=== PATIENT | female | born 1970 | race Caucasian/White ===

== ENCOUNTER → 2018-05-25 | Outpatient (CLI) | payer OTHER | LOC: COL.RAD 14:29 | DX: D17.79 Benign lipomatous neoplasm of other sites (principal) ==

== ENCOUNTER 2018-07-11 22:31 | Inpatient (IN) | payer OTHER ==
[~2018-07-11] VITALS: Ht 170.2 cm; Wt 101.9 kg
--- NOTE | 2018-07-11 23:45 | NUR ---
Patient brought to floor by [facility], brought from [facility]. Vitals stable. Patient reports pain to ABD, rating it 10/10. Currently having dry heaves. Patient's skin and eyes notably yellow from jaundice. Per report patient has a history of Hep C. 20 g INT to right wrist. Will notify provider of patient's arrival.
[2018-07-12] VITALS (747 sets, daily range): BP systolic 67–107; BP diastolic 42–69; PULSE 76–102; TEMP 98.2–99.9; O2SAT 43–100
--- NOTE | 2018-07-12 01:30 | NUR ---
Patient given Zofran for dry heaves. Will reasses n/v in order to give lactulose.
--- NOTE | 2018-07-12 03:15 | NUR ---
Patient able to take lactulose without nausea, but reports a burning sensation in chest.
[2018-07-12 03:56] LABS: MEAN CELL VOLUME 107 fl (80.0-100.0); MEAN CORPUSCULAR HGB CONC 32 g/dl (33.0-37.0); MEAN PLATELET VOLUME 10.7 fl (7.4-10.4); PLATELET COUNT 57 K/mm3 (130-400); RED BLOOD COUNT 2.16 M/mm3 (4.10-5.30); REDCELL DISTRIBUTION WIDTH-CV 25.3 % (11.5-14.5)
[2018-07-12 03:59] LABS: INR 3.6 (0.8-3.0); PROTHROMBIN TIME 43.8 SECONDS (9.7-12.8)
--- NOTE | 2018-07-12 04:00 | NUR ---
Patient up to BSC with liquid stool. Complete bed change completed.
[2018-07-12 04:01] LABS: HEMOGLOBIN 7.4 g/dl (12.5-16.0); MEAN CORPUSCULAR HEMOGLOBIN 34 pg (27.0-31.0)
--- NOTE | 2018-07-12 04:15 | NUR ---
Patient had 75 ml emesis after drinking 1/4 of dose of Effer-K in apple juice. 12.5 mg of Phenergan given at this time, immediate relief noted.
[2018-07-12 04:16] LABS: ALBUMIN 2.7 gm/dL (3.5-5.0); BILIRUBIN,TOTAL 24.9 mg/dL (0.0-1.0); CALCIUM 8.1 mg/dL (8.4-10.2); POTASSIUM 3.2 mmol/L (3.4-5.0); TOTAL PROTEIN 7.3 gm/dL (6.4-8.2)
[2018-07-12 04:28] LABS: ANISOCYTOSIS 3+; BAND 10 % (0-10); HYPOCHROMIA 1+; LYMPHOCYTE 4 % (20.0-51.0); METAMYELOCYTE 2 % (0-0); NEUTROPHILS 72 % (42.0-75.2); NUCLEATED RED BLOOD CELL 1 (0-6)
[2018-07-12 04:29] LABS: TARGET CELLS 2+
--- NOTE | 2018-07-12 05:00 | NUR ---
Patient was able to finish Effer-K in apple juice withou any n/v.
--- NOTE | 2018-07-12 05:40 | NUR ---
Patient is being transfered to ICU. Report given to YONAS Patel at this time.
[2018-07-12 05:41] LABS: RETIC # 0.04 M/mm3 (0.02-0.16); RETIC % 1.8 % (0.5-3.52)
--- NOTE | 2018-07-12 05:46 | NUR ---
Report received from YONAS Bear. Will notify when room is ready.
--- NOTE | 2018-07-12 06:01 | NUR ---
Patient arrives at this time via bed. Patient is alert and partially oriented. She falls asleep very easily. Patient follows commands. Assessment reveals clear lung sounds with diminished bases. HR and rhythm regular with normal S1 and S2 heard. Bowel sounds active x4. Patient has complaints of mild shoulder pain. Patient has bruises on both arms from previous lab draws or IV attempts. Patient also has some bruises in various locations on her right leg. Patient's right ankle is deformed from previous injury. Patient has +2 edema BLE. No further needs at this time. Attempting to start more IV sites, so far unsuccessful. Will continue to monitor. Call light within reach.
--- NOTE | 2018-07-12 07:00 | NUR ---
Bedside shift report received from YONAS Patel. Patient is sleeping, lying supine in bed with complaints of abdominal pain 5/10. Patient has no other complaints or concerns at this time. Patient is connected to bedside monitor, vital signs stable. Call light placed within reach. Bed in lowest position. Side rails up x3. Non-slip yellow socks placed on patient at this time. Patient is currently refusing SCDs.
--- NOTE | 2018-07-12 07:20 | NUR ---
Bedside report given to YONAS Chino
--- NOTE | 2018-07-12 10:09 | NUR ---
GAIL attended clinical rounds. The hospitalist discussed the patient's poor prognosis and the patient verbalized understanding. A palliative care consult was ordered and GAIL notified Karrie. GAIL then met with the patient. The patient lives in [place] with her friend, Yann. She states that she has known him for four years and he is really her only support. She states that she has eight children that live in [place]. Palliative Care Nurse, Karrie, then joined GAIL. The patient reports that she has not seen any of her children for four years and that she does not want to call anyone of them. Karrie and GAIL both discussed completing a DPOA-HC. The patient reports that she would want to designate her friend, Yann. Yann has been notified and is planning on being up at the hospital soon. The patient's nurse is to notify GAIL when he arrives. Karrie also discussed the option of the hospice house. The patient did express interest and would be agreeable to transfer there. GAIL to continue to follow to ensure a safe discharge.
--- NOTE | 2018-07-12 10:26 | NUR ---
Patient has a potassium level of 3.2 this morning and needs potassium replacement of 60 mEq total for today. The night nurse ordered 80 mEq PO. The patient received 40 mEq PO, but became nauseous while Dr. Jay was in the patient's room. Dr. Jay ordered for the patient to receive the rest of the potassium IV post PICC placement. Mary, PICC RN, is in the room now to insert PICC. Patient still needs 20mEq of potassium IV that will run through the PICC line.
--- NOTE | 2018-07-12 10:56 | NUR ---
Initial visit; Patient barely responded as Body Sander introduced herself and let patient know of the availability of spiritual care.
--- NOTE | 2018-07-12 11:35 | NUR ---
The patient's friend, Yann, arrived to ICU. GAIL and Palliative Care Nurse, Karrie, then met with the patient and Yann. Karrie updated Yann on the patient's prognosis. Yann reports that he is agreeable to becoming the patient's DPOA-HC. GAIL and Karrie witnessed the patient's signature. Yann was provided with the original and some copies. A copy of the DPOA-HC was placed in the patient's chart. Karrie also discussed the options of [facility] and hospice in the home, if the patient is to survive her hospital stay. Yann verbalized understanding. GAIL and Karrie provided support. SW to continue to follow.
--- NOTE | 2018-07-12 12:00 | NUR ---
Patient's status is worsening. Blood pressure is dropping and is currently 91/55 and the patient is having ectopy. Call light within reach, bed lowered, side rails up x3.
--- NOTE | 2018-07-12 15:20 | NUR ---
Dr. Jay at bedside to assess patient. Patient's blood pressure is 80/42 at this time and states she is "dizzy and doesn't recognize things". Dr. Jay explains the patient's poor prognosis and talks with the patient at length about end of life decisions. Dr. Jay asks "Do you understand you are dying?" and the patient responds, "Yes".
[2018-07-12 16:19] LABS: FOLATE (FOLIC ACID) 2.1 ng/mL (7.0-31.4)
--- NOTE | 2018-07-12 16:22 | NUR ---
After 3 units of Cryo had been infused, Dr. Hameed discussed end of life wishes with patient and made the patient comfort care. Dr. Jay has ordered to hold the last 2 units of Cryo at this time. The patient received 3/5 Cryo units at this time. RN is unsure how to undo documentation for 2 units not received. The 2 units not received were unit #'s [id number] and [id number]. Blood bank called and RN instructed to bring unused Cryo back to the blood bank at this time.
--- NOTE | 2018-07-12 18:36 | NUR ---
Patient's brother, Brian, called and notified nursing staff to let the patient know that he and her father are on their way. Patient made aware of this.
--- NOTE | 2018-07-12 18:44 | NUR ---
Blood bank notified that the 2 units of cryo that were returned are still showing up as "transfusing". Reji in blood bank assured me that the dairy manager would have to take care of it and sign off on it.
--- NOTE | 2018-07-12 19:31 | NUR ---
Bedside report received from YONAS Chino. Patient asleep in bed at this time. Patient care transferred.
--- NOTE | 2018-07-12 19:31 | NUR ---
Bedside shift report given to YONAS Patel. Patient is sleeping and does not arouse during report. Comfort measures are in place. Patient remains connected to bedside monitor, but automatic blood pressure has been suspended at this time. Vital signs will be taken PRN. Call light within reach. Bed in lowest position. Side rails up x3.
--- NOTE | 2018-07-12 20:20 | NUR ---
Patient is restless in bed, turning back and forth and moaning. Patient is responsive to questions, but is very quiet and mumbly. Sclopolamine patch applied behind left ear. Patient does have complaints of 8/10 pain in her abdomen, pain medication to be provided. Patient also states she is very thirsty and wants grape juice with ice, provided. Patient's BP is now 97/55. Without oxygen at 2L NC, patient's O2 sats drop to 88%. Readjusted NC, Sats back up to 95%. Patient has no further needs at this time. Will continue to monitor. Call light within reach.
[2018-07-13] VITALS (1403 sets, daily range): BP systolic 93; BP diastolic 59; PULSE 112; TEMP 98.3; O2SAT 83–98
--- NOTE | 2018-07-13 00:30 | NUR ---
Patient has again started to become restless and has knocked off her oxygen. Replaced NC. Patient has complaints of 8/10 pain in her abdomen and appears uncomfortable. Medication to be provided. Patient has no other needs at this time. Will continue to monitor. BP has been stable, now reads 101/66. Call light within reach.
--- NOTE | 2018-07-13 04:25 | NUR ---
Patient started having 5-8 beats runs of V-tach every 30seconds for the last 10mins. Will notify APRN. Ani
--- NOTE | 2018-07-13 04:29 | NUR ---
Went into patient room at this time to check on her. Patient is sleeping unpon enterance, blood pressure recycled, is now 90/64. Patient awakens to name. Asked how she is feeling, replies "I'm ok". When asked if she is in pain, replies "no". Patient then falls asleep quickly after. Patient is showing no signs of distress or withdrawl. Will continue to monitor. Call light within reach.
--- NOTE | 2018-07-13 05:33 | NUR ---
Patient is starting to have increasingly longer runs of V-tach. between 6-14 beat runs. Patient is also having much more frequent PVCs and PJCs. Will continue to monitor.
--- NOTE | 2018-07-13 06:10 | NUR ---
Patient up to bedside commode. Patient did well with one assist. Patient produced some very dark colored urine, brown/black. Patient cleaned with personal wipes and return to bed. Patient O2 sat was sitting consistently at 89% even with 2L NC, turned her up to 3L, O2 increased to 93%.
--- NOTE | 2018-07-13 07:10 | NUR ---
Bedside report given to YONAS Ponce.
--- NOTE | 2018-07-13 07:10 | NUR ---
Bedside report received from YONAS Patel.
--- NOTE | 2018-07-13 09:45 | NUR ---
Pt is sleeping at this time without family in the room. she is on comfort care with plan to manage DT's first and then transfer to [facility] if needed. I had spoken to JANA Lerner yesterday about this and he reports he could not manage her care at home. Pt has no insurance.
--- NOTE | 2018-07-13 12:15 | NUR ---
Assisted patient in ordering lunch, reports pain 8/10, requesting pain medication, denies other needs at this time, call light within reach.
[2018-07-13 13:03] LABS: CERULOPLASMIN 25.8 mg/dL (())
[2018-07-13 15:49] LABS: ANTISMOOTH MUSCLE ANTIBODY Negative (Negative)
--- NOTE | 2018-07-13 16:30 | NUR ---
Patient repositioned for comfort, scheduled ativan held due to patient being very sleepy. ALFA Lerner at bedside.
--- NOTE | 2018-07-13 19:02 | NUR ---
Bedside report given to YONAS Patel, patient repositioned for comfort.
--- NOTE | 2018-07-13 19:05 | NUR ---
Bedside report received from YONAS Ponce. Patient repositioned for comfort. She requests some ice with juice, provided. Transfer of care at this time.
--- NOTE | 2018-07-13 20:00 | NUR ---
Patient resting in bed. Sleeps between disturbances. No complaints of pain at this time. No further needs. Will continue to monitor. Call light within reach.
[2018-07-13 22:42] LABS: ALPHA 1 ANTITRYPSIN TOTAL 174 mg/dL (())
[2018-07-14] VITALS (869 sets, daily range): BP systolic 101; BP diastolic 59; PULSE 94; TEMP 99.6; O2SAT 80–100
--- NOTE | 2018-07-14 | NUR ---
Patient asleep at this time. Awakens to name and touch. When asked if in pain patient mumbles yes, rates pain a 5/10. Repositioned for comfort. Morphine to be provided. Patient is very sleepy at this time and falls asleep again right away after answering questions, will hold this dose of Ativan. Will continue to monitor. Call light within reach.
--- NOTE | 2018-07-14 01:30 | NUR ---
Patient's family arrives at this time. This nurse was present in the room for questions. Spoke with patient's father about her status and POC. Answered all questions to the best of my abilities. Family requests to stay with the patient for a short while, allowed them some privacy.
--- NOTE | 2018-07-14 04:00 | NUR ---
Patient continues to rest at this time, but her face is scrunched and looks uncomfortable. Patient rates pain 5/10. Patients hands are also starting to show some tremors. Ativan and morphine to be provided. Brother, Tj, remains in the room. No further needs at this time. Will continue to monitor. Call light within reach.
--- NOTE | 2018-07-14 07:41 | NUR ---
Bedside report given to YONAS Aguilar
--- NOTE | 2018-07-14 07:50 | NUR ---
Patient in bed drowsy but arouses to voice and touch. Family at bedside. Shift assessment complete. On 3 L via NC. PICC to KYA without complications. Deformity noted to right ankle. BLE edema +1 pitting. Refuses fluids at this time. Refuses SCDs. Denies pain or further needs at this time.
--- NOTE | 2018-07-14 11:07 | NUR ---
Dr. Patel in to see patient, family at bedside. Will transfer to medical floor.
--- NOTE | 2018-07-14 11:26 | NUR ---
Yann, patient DPOA states he needs to take black bag and associated contents home to attend to patient's matters. Bag contents include : Pants Shirt Underwear Top dentures 1 bottle of benadryl HCTZ bottle with 4 different unidentified pills in it Various makeup Small flashlight Pliers Batteries Ric wrap Cell phone unix administrator Various toiletries Pocket knives x2 4 keys Large keychain and lanyard Bible CD from [facility] labeled as film of right ankle Various bills Court notices x3 [facility] unemployment check stubs (No checks present) W2 from [facility] [employer][1] group W2 from [facility]
--- NOTE | 2018-07-14 12:19 | NUR ---
Notified Dr. Rivas patient HR increased to 130's, patient was attempting to change position then HR decreased to 80's once she repositioned.
--- NOTE | 2018-07-14 13:07 | NUR ---
ALFA Lerner returns black bag to patient's room. Contents are not re-examined.
--- NOTE | 2018-07-14 14:24 | NUR ---
Report given to Freida BRANHAM.
--- NOTE | 2018-07-14 14:24 | NUR ---
Report recieved from YONAS Aguilar. Care assumed.
[2018-07-14 14:40] LABS: CALCIUM 8.4 mg/dL (8.4-10.2); CREATININE, serum 1.31 (0.52-1.25); POTASSIUM 3.4 mmol/L (3.4-5.0)
--- NOTE | 2018-07-14 15:28 | NUR ---
GAIL sent referral to [facility] . Awaiting call from GAIL to find out if they will accept Med-pending. Patient is reported to be moved to floor soon and is agreeable to comfort care.
--- NOTE | 2018-07-14 17:17 | NUR ---
Patient transported to medical room 309. Prior report called to YONAS Foster. Patient family notified of transfer and all questions asked answered.
--- NOTE | 2018-07-14 18:04 | NUR ---
Pt arrived floor in bed and pt's family with her in rm. Pt's juandice and sleeping soundly. Pt's family oriented rm, call light button, rm service, and bed button. Family has no concern at this time. Call light in reach.
--- NOTE | 2018-07-14 18:33 | NUR ---
Mouth swab and kleenex provided. Pt sleeping soundly. Pt's family talking and at the bedside. Call light in reach.
--- NOTE | 2018-07-14 19:00 | NUR ---
1900: SHIFT ROUND COMPLETED AT THIS TIME. PATIENT LAYING IN BED WITH EYES CLOSED. PRESENTS WITH RELAXED BODY POSTURE AND NO FACIAL GRIMACING. RESPIRATION 34, SHALLOW AND SNORING. SKIN JAUNDICE. PATIENT UNRESPONSIVE TO VOICE AND STIMULATION. FAMILY IN ROOM. EXPRESS WISHES THAT PATIENT BE KEPT COMFORTABLE. ASSURED FAMILY THAT THIS WOULD HAPPEN. ENCOURAGED FAMILY TO VOICED NEEDS OR CONCERNS.
--- NOTE | 2018-07-14 19:06 | NUR ---
Pt sleeping soundly in bed. Report given to YONAS Jara.
--- NOTE | 2018-07-14 20:15 | NUR ---
FAMILY LEFT FACILITY TO GO TO DINNER. PATIENT PRESENTS WITH FACIAL GRIMACING AND RESPIRATIONS OF 36 AND SNORING. SEE EMAR FOR MEDICATION ADMINISTERED ACCORDING TO ORDERS. ORAL SUCTION PERFORMED AND ORAL CARE PROVIDED D/T BLEEDING FROM GUMS AND THROAT. ELIJAH SALAS NOTIFIED OF ORAL BLEEDING. ORDER RECEIVED FOR SUCTION NEEDED. PATIENT REPOSTIONED AND MUSIC TURNED ON.
--- NOTE | 2018-07-14 22:30 | NUR ---
PATIENT LAYING IN BED WITH RELAXED BODY POSTURE AND NO FACIAL GRIMACING. BLOOD VISIBLE ON OUTSIDE OF MOUTH. ORAL SUCTION AND ORAL CARE PERFORMED. NO GAG REFLEX PRESENT. RESPIRATIONS 35 SHALLOW AND SNORING. PATIENT REPOSITIONED AND KEN CARE PERFORMED. FAMILY BACK IN ROOM. SECOND RECLINER PROVIDED. ENCOURAGED FAMILY TO VOICE NEEDS OR CONCERNS.
--- NOTE | 2018-07-14 23:20 | NUR ---
fAMILY CALLING THIS NURSE TO ROOM STATING I DON'T THINK SHE IS BREATHING. UPON OBSERVATION RESPIRATIONS AND APICAL HEART RATE ABSENT X 60 SECONDS AT 2320. BLOOD PRESSURE AND HEART RATE ABSENT. FAMILY INFORMED THAT PATIENT HAD PASSED. EMOTIONAL SUPPORT PROVIDED. ELIJAH SALAS NOTIFIED OF PATIENT PASSING AT 2325. HISTORIC CLOTHING AND COSTUME MAKER NOTIFIED.
--- NOTE | 2018-07-15 00:23 | NUR ---
[place] notified of patient's demise. Patient not a candidate for donation. Referral number [id number].
--- NOTE | 2018-07-15 02:23 | NUR ---
0220: MORTUARY STAFF HERE TO SWITCHER BODY. FAMILY NOT IN ATTENDANCE AT DEPARTURE. LEFT FACILITY @ 0130. PERSONAL BELONGINGS TO INCLUDE QUILT, EARRINGS AND BLACK BAG OF PERSONAL BELONGING TAKE BY PARENTS.
== END 2018-07-15 02:15 | disposition expired | DRG 433 ==
LOC: MEDICAL 22:31 → ICU 07-12 00:09 → MEDICAL 07-12 00:09 → ICU 07-12 06:13 → MEDICAL 07-14 17:57
PROVIDERS: Internal Medicine Pulmonary Disease; Nurse Practitioner; ADMIT Family Medicine
PROC: 02HV33Z Insertion of Infusion Device into Superior Vena Cava, Percutaneous Approach (ICD-10-PCS; principal; 2018-07-12)
DX: K70.40 Alcoholic hepatic failure without coma (principal); K76.6 Portal hypertension; D61.818 Other pancytopenia; I47.2 Ventricular tachycardia; D69.6 Thrombocytopenia, unspecified; E87.6 Hypokalemia; E83.42 Hypomagnesemia; R74.0 Nonspecific elevation of levels of transaminase and lactic acid dehydrogenase [LDH]; Z66 Do not resuscitate; F10.20 Alcohol dependence, uncomplicated; B19.20 Unspecified viral hepatitis C without hepatic coma; K44.9 Diaphragmatic hernia without obstruction or gangrene; Z88.0 Allergy status to penicillin
CPT/HCPCS: 99222; 99223-AI; 99233-AI; C1751; J2060; J2270; J2405; J2550; J3430; J3475; J3480; J7030; P9012